=== PATIENT | male | born 1990 | race Caucasian/White ===

== ENCOUNTER 2016-12-23 13:59 | Emergency (ER) | payer BC ==
[2016-12-23] MEDS ORDERED: Tetan/Diph/Pertus SYR(Tdap)* 0.5 ML SYR(BOOSTRIX) use SYR IM ONE (17:15)
--- NOTE | 2016-12-23 17:50 | RAD ---
INDICATION: Puncture wound. Evaluate for foreign body. COMPARISON: Left hand March 28, 2008 TECHNIQUE: AP and lateral views were obtained. FINDINGS: The bony structures, joint spaces, and soft tissues are normal for age. IMPRESSION: NO FRACTURE OR FOREIGN BODY.
[2016-12-23] MEDS ORDERED: Cephalexin CAP* 500 MG PO ONE (17:56)
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
[2016-12-23 18:16] VITALS: BP 132/83
== END 2016-12-23 18:06 | disposition home or self-care (01) ==
LOC: UCEAST 13:59
DX: S61.432A Puncture wound without foreign body of left hand, initial encounter (principal); L08.9 Local infection of the skin and subcutaneous tissue, unspecified; W45.0XXA Nail entering through skin, initial encounter; Y93.9 Activity, unspecified; Y92.71 Barn as the place of occurrence of the external cause; Z23 Encounter for immunization; F17.210 Nicotine dependence, cigarettes, uncomplicated
CPT/HCPCS: 90471; 90715; 99202; A9270-GY; G0463

== ENCOUNTER 2017-04-16 13:19 | Emergency (ER) | payer SELFPAY ==
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
[2017-04-16 13:42] VITALS: BP 121/79
== END 2017-04-16 13:47 | disposition home or self-care (01) ==
LOC: UCEAST 13:19
DX: R07.81 Pleurodynia (principal); V49.9XXA Car occupant (driver) (passenger) injured in unspecified traffic accident, initial encounter; Y92.9 Unspecified place or not applicable; F17.210 Nicotine dependence, cigarettes, uncomplicated
CPT/HCPCS: 99211; G0463